=== PATIENT | female | born 1955 ===

== ENCOUNTER 2024-09-11 06:14 | Day surgery (SDC) | payer BC, SELFPAY ==
[2024-09-11 09:23] VITALS: BMI 34.6
[2024-09-11 09:25] VITALS: BMI 34.6
[2024-09-11 09:30] VITALS: BP 165/74
[2024-09-11 09:41] LABS: Glucose - Point of Care 110 mg/dl (70-99)
[2024-09-11 11:00] VITALS: BP 129/54
[2024-09-11 11:06] VITALS: BP 124/56
[2024-09-11 11:15] VITALS: BP 124/56
[2024-09-11 11:22] VITALS: BP 130/64
== END 2024-09-11 12:01 | disposition home or self-care (01) ==
LOC: GI 06:14
PROVIDERS: ATTENDING PHYSICIAN Internal Medicine Gastroenterology
DX: D50.9 Iron deficiency anemia, unspecified (principal); K57.30 Diverticulosis of large intestine without perforation or abscess without bleeding; K64.8 Other hemorrhoids; K44.9 Diaphragmatic hernia without obstruction or gangrene; K31.89 Other diseases of stomach and duodenum
CPT/HCPCS: 45378; 43239; 88305; 82962; 88342